=== PATIENT | female | born 1945 | race Caucasian/White ===

== ENCOUNTER 2021-02-03 10:07 | Day surgery (SDC) | payer MEDICARE, OTHER ==
[~2021-02-03] VITALS: Ht 172.7 cm; Wt 89.1 kg
[2021-02-03] VITALS (12 sets, daily range): BP systolic 101–185; BP diastolic 40–79
[2021-02-03] MEDS ORDERED: CHOL400T27 PO (10:42)
[2021-02-03] MEDS ORDERED: ASPI-1265 PO (10:42)
[2021-02-03] MEDS ORDERED: HYDR25TA4 PO (10:42)
[2021-02-03] MEDS ORDERED: LISI20TA28 PO (10:42)
[2021-02-03] MEDS ORDERED: PROP150T2 PO (10:42)
[2021-02-03] MEDS ORDERED: MULT-1085 PO (10:42)
[2021-02-03] MEDS ORDERED: normal saline 1,000 ML IV SCH (10:50)
[2021-02-03] MEDS ORDERED: diphenhydrAMINE 25mg capsule PO PRN (10:50)
[2021-02-03 11:18] LABS: BASOPHILS # (AUTO) 0.1 X10'3 (0-0.2); BASOPHILS % (AUTO) 0.7 % (0-1); EOSINOPHILS # (AUTO) 0.2 X10'3 (0-0.9); EOSINOPHILS % (AUTO) 2.6 % (0-6); HEMATOCRIT 45.7 % (35.0-45.0); HEMOGLOBIN 15.6 g/dl (12.0-16.0); LYMPHOCYTES # (AUTO) 2.6 X10'3 (1.1-4.8); LYMPHOCYTES % (AUTO) 31.1 % (21-51); MEAN CORPUSCULAR HEMOGLOBIN 30.6 PG (27.0-31.0); MEAN CORPUSCULAR HGB CONC 34.1 g/dL (33.0-36.5); MEAN CORPUSCULAR VOLUME 89.6 FL (78-98); MEAN PLATELET VOLUME 8.6 FL (7.4-10.4); MONOCYTES # (AUTO) 0.8 X10'3 (0-0.9); MONOCYTES % (AUTO) 9.2 % (2-12); NEUTROPHILS # (AUTO) 4.7 X10'3 (1.8-7.7); NEUTROPHILS % (AUTO) 56.4 % (42-75); PLATELET COUNT 310 X10'3 (140-440); RED CELL DISTRIBUTION WIDTH 13.4 % (11.5-14.5); WHITE BLOOD COUNT 8.4 X10'3 (4.5-11.0)
[2021-02-03 11:26] LABS: ALBUMIN 4.4 G/DL (3.4-5.0); ANION GAP 8 (8-16); BLOOD UREA NITROGEN 20 MG/DL (7-18); BUN/CREATININE RATIO 20.2 (6.6-38.0); CALCIUM 9.7 MG/DL (8.5-10.1); CHLORIDE 102 MMOL/L (99-107); CREATININE 0.99 MG/DL (0.40-0.90); POTASSIUM 3.9 MMOL/L (3.5-5.1); SODIUM 139 MMOL/L (135-145); TOTAL CARBON DIOXIDE 29.3 MMOL/L (24-32); eGFR 55 ML/MIN
[2021-02-03 11:27] LABS: GLUCOSE 96 MG/DL (70-104)
[2021-02-03] MEDS ORDERED: midazolam 1 mg/ML 2ml injection ONE (12:21)
[2021-02-03] MEDS ORDERED: fentaNYL/PF 50MCG/1 ML 2ML syringe ONE (12:21)
[2021-02-03] MEDS ORDERED: iohexol 350 MG/ML 50ML vial IV ONE (12:22)
[2021-02-03] MEDS ORDERED: heparin 1,000unit/ml 10ml vial 10 ML ONE (12:22)
[2021-02-03] MEDS ORDERED: iohexol 350MG/ML 100ml bottle IV ONE (12:22)
[2021-02-03] MEDS ORDERED: LIDOcaine 1% (10mg/ml)w/preservative injection 20ml MDV ONE (12:22)
[2021-02-03] MEDS ORDERED: proCHLORperazine 10 MG/2 ml inj IV PRN (13:40)
[2021-02-03] MEDS ORDERED: normal saline 1000ml 1,000 ML IV SCH (13:40)
[2021-02-03] MEDS ORDERED: HYDROcodone/acetaminophen 10/325mg tab PO PRN (13:40)
[2021-02-03] MEDS ORDERED: HYDROcodone/acetaminophen 5mg/325mg tablet PO PRN (13:40)
[2021-02-03] MEDS ORDERED: ondansetron/PF 4mg/2ml inj IV PRN (13:40)
== END 2021-02-03 16:20 | disposition home or self-care (01) ==
LOC: SSTAY O 10:07
PROVIDERS: ATTEND Internal Medicine Cardiovascular Disease
DX: R94.39 Abnormal result of other cardiovascular function study (principal); I48.0 Paroxysmal atrial fibrillation; I47.1 Supraventricular tachycardia; I10 Essential (primary) hypertension; G47.30 Sleep apnea, unspecified; C50.911 Malignant neoplasm of unspecified site of right female breast; Z79.01 Long term (current) use of anticoagulants; Z79.899 Other long term (current) drug therapy; Z79.82 Long term (current) use of aspirin; Z98.890 Other specified postprocedural states; Z87.891 Personal history of nicotine dependence; Z88.8 Allergy status to other drugs, medicaments and biological substances
CPT/HCPCS: 36415; 80048; 83735; 85025; 85610; 93005; 93458; 99152; C1760; C1769; C1894; J1644; J2001; J2250; J3010; J7030; Q0163; Q9967; A4620; A6258

== ENCOUNTER 2023-12-18 16:08 | Emergency (ER) | payer MEDICARE, OTHER ==
[~2023-12-18] VITALS: Ht 172.7 cm; Wt 90.8 kg
[~2023-12-18 16:08] MED LIST: ASPI-1265 PO; CHOL400T58 PO; HYDR25TA4 PO; LISI20TA28 PO; MULT-1085 PO; PROP150T2 PO
[2023-12-18 16:10] VITALS: BP 169/66; PULSE 78; RESP 16; TEMP 99.4; O2SAT 96
[2023-12-18] MEDS: LIDOcaine 1% 30ml preserv. free vial SQ STA (16:35)
[2023-12-18] MEDS: TETanus/Pertussis (Acell)/Diphther VAC/PF (Tdap-Adult) 0.5ml syringe IMVAC ONE (16:35)
[2023-12-18] MEDS ORDERED: AMOX-117 PO (17:38)
== END 2023-12-18 18:05 | disposition home or self-care (01) ==
LOC: ER 16:08
DX: S61.212A Laceration without foreign body of right middle finger without damage to nail, initial encounter (principal); Z79.82 Long term (current) use of aspirin; Z79.899 Other long term (current) drug therapy; W54.0XXA Bitten by dog, initial encounter; Y93.89 Activity, other specified; Y92.89 Other specified places as the place of occurrence of the external cause; Y99.8 Other external cause status
CPT/HCPCS: 12002; 90471; 90715; 99283; A6223; J7030; A6449

== ENCOUNTER 2024-12-20 11:12 | Inpatient (IN) | payer MEDICARE, OTHER ==
[~2024-12-20] VITALS: Ht 170.2 cm; Wt 94.2 kg
--- NOTE | 2024-12-20 11:50 | ELECTROCARDIOGRAPH REPORT ---
[facility] Test Date: 2024-12-20 Test Time: 11:47:39 Pat Name: VINH COLON Department: [facility] Patient ID: [id number] Room: [place] [address] Gender: F Photovoltaic Installer: : 1945 Requested By: PABLITO MORENO Order Number: [id number] Reading MD: Dr. Azam Lopez Measurements Intervals [place] Rate: 43 P: 260 [place]: 195 QRS: -21 QRSD: 115 T: 141 QT: 465 QTc: 394 Interpretive Statements Sinus or ectopic atrial bradycardia Nonspecific intraventricular conduction delay Probable anterolateral infarct, age indeterm Abnormal T, consider ischemia, lateral leads Electronically Signed On 12-27-2024 21:44:[address] Azam Lopez Please click the below link to view image of tracing.
[2024-12-20 11:57] LABS: BASOPHILS % (AUTO) 0.5 % (0-1); EOSINOPHILS # (AUTO) 0.1 X10'3 (0-0.9); EOSINOPHILS % (AUTO) 1.8 % (0-6); HEMATOCRIT 45.3 % (35.0-45.0); HEMOGLOBIN 15.3 g/dl (12.0-16.0); LYMPHOCYTES # (AUTO) 1.6 X10'3 (1.1-4.8); LYMPHOCYTES % (AUTO) 24.8 % (21-51); MEAN CORPUSCULAR HEMOGLOBIN 29.8 PG (27.0-31.0); MEAN CORPUSCULAR HGB CONC 33.9 g/dL (33.0-36.5); MEAN PLATELET VOLUME 8.7 FL (7.4-10.4); MONOCYTES # (AUTO) 0.7 X10'3 (0-0.9); MONOCYTES % (AUTO) 10.2 % (2-12); NEUTROPHILS # (AUTO) 4.2 X10'3 (1.8-7.7); NEUTROPHILS % (AUTO) 62.7 % (42-75); PLATELET COUNT 259 X10'3 (140-440); RED BLOOD COUNT 5.14 X10'6 (4.20-5.60); WHITE BLOOD COUNT 6.6 X10'3 (4.5-11.0)
[2024-12-20 12:12] LABS: ALANINE AMINOTRANSFERASE 31 U/L (12-78); ALBUMIN 3.8 G/DL (3.4-5.0); ALBUMIN/GLOBULIN RATIO 1.1 (1.1-1.5); ALKALINE PHOSPHATASE 93 IU/L (46-116); ANION GAP 7 (8-16); ASPARTATE AMINO TRANSFERASE 22 U/L (10-37); BILIRUBIN,TOTAL 0.7 MG/DL (0.1-1.0); BLOOD UREA NITROGEN 18 MG/DL (7-18); BUN/CREATININE RATIO 17.1 (10.0-20.0); CHLORIDE 105 MMOL/L (99-107); CREATININE 1.05 MG/DL (0.40-0.90); GLUCOSE 109 MG/DL (70-104); POTASSIUM 3.7 MMOL/L (3.5-5.1); SODIUM 141 MMOL/L (135-145); TOTAL CARBON DIOXIDE 29.3 MMOL/L (24-32); TOTAL PROTEIN 7.2 G/DL (6.4-8.2); eCRCL 42 ML/MIN; eGFR 50 ML/MIN
[2024-12-20 12:22] LABS: PRO BRAIN NATRIURETIC PEPTIDE 193 PG/ML (0-450)
--- NOTE | 2024-12-20 12:27 | RADIOLOGY REPORT ---
EXAM: DI CHEST,SINGLE VIEW Indication: CP Technique: Single frontal view of the chest was obtained Comparison: None FINDINGS: Lines and Tubes: None Lungs: No focal consolidation. Pleura: No effusion. No pneumothorax. Cardiomediastinal contours: Unremarkable Bones: No acute osseous abnormality. IMPRESSION: No acute cardiopulmonary disease.
[2024-12-20] MEDS: normal saline 1000ml 1,000 ML IV ONE (12:51)
[2024-12-20 14:19] LABS: UA COLLECTION TYPE VOIDED
[2024-12-20 14:20] LABS: BILIRUBIN,URINE NEGATIVE (Neg); CLARITY,URINE CLOUDY (Clear); COLOR,URINE YELLOW (Yellow); GLUCOSE, URINE NEGATIVE (Neg); KETONES,URINE 15 mg/dl (Neg); LEUKOCYTE ESTERASE ,URINE NEGATIVE (Neg); NITRITES, URINE POSITIVE (Neg); OCCULT BLOOD,URINE NEGATIVE (Neg); PROTEIN,URINE NEGATIVE (Neg); UROBILINOGEN,URINE 0.2 E.U/dL (0.2-1.0)
[2024-12-20 14:27] LABS: BACTERIA,URINE 4+ /HPF (Neg); RBC,URINE 0-2 /HPF (0-2); SQUAMOUS EPITHELIAL CELL,UR FEW /LPF (FEW)
[2024-12-20] MEDS ORDERED: ondansetron 4mg rapidly disintigrating tab PO PRN (15:00)
[2024-12-20] MEDS ORDERED: magnesium sulf-water 2g/50mL 50 ML IV PRN (15:00)
[2024-12-20] MEDS ORDERED: potassium Cl 40MEQ/1/2NS 520ml 520 ML IV PRN (15:00)
[2024-12-20] MEDS ORDERED: magnesium hydroxide 30ml (MOM) UD suspension PO PRN (15:00)
[2024-12-20] MEDS ORDERED: potassium Cl 20 mEq SR tablet PO PRN ×2 (15:00)
[2024-12-20] MEDS ORDERED: magnesium sulf-water 4G/100mL 100 ML IV PRN (15:00)
[2024-12-20] MEDS ORDERED: acetaminophen 325mg tablet PO PRN ×2 (15:00)
[2024-12-20] MEDS ORDERED: mag hydrox/Alum hydrox/simeth 30ml oral suspension PO PRN (15:00)
[2024-12-20] MEDS ORDERED: ondansetron/PF 4mg/2ml inj IV PRN (15:00)
[2024-12-20] MEDS: CefTRIAXone/D5W-Rocephin 1gm 50 ML IV ONE (15:21)
[2024-12-20] MEDS: normal saline 1000ml 1,000 ML IV SCH (15:21)
[2024-12-20] MEDS: PERFLUTREN PROTEIN-A MICROSPHR (Optison) 0.22 MG/ML 3ML VIAL IV ONE (15:53)
--- NOTE | 2024-12-20 16:48 | HISTORY AND PHYSICAL ---
History & Physical Providers to CC ~ History of Present Illness Reason for Admit\Complaint: symptomatic bradycardia, near-syncope History of Present Illness Christina Evans is a 79-year-old female with a past medical history of HTN and right breast cancer s/p lumpectomy who presented to the ED with chief complaint of intermittent near-syncope, generalized weakness, dizziness x 2 days. Patient denies prior MA/CAD, CVA, cardiac arrhythmia, DVT/PE, or GIB. Patient denies loss of consciousness, chest pain, palpitations, shortness of breath, abdominal pain, n/v/d. Patient states her material handler 2nd shift is Dr. Regan but states has not follow-up in two years. Initial diagnostic findings were notable for urinalysis positive for urinary tract infection and EKG indicating sinus bradycardia without BBB, no AVB. Tele in ED shows heart rate of 40-50s. Case consulted with on-call material handler [address]nd [address] Jha. Patient is to be admitted for further workups and treatment. Allergies: Coded Allergies: No Known Allergies (Unverified , 12/20/24) Home Medications Home Medications Active Reported Vitamin D3 (Cholecalciferol (Vitamin D3)) 10 Mcg Tablet 1 Tab PO DAILY Multi Vitamin Daily (Multivitamin) 1 Each Tablet 1 Tab PO DAILY Aspirin 81 Mg Tab.chew 1 Tab PO DAILY Hydrochlorothiazide 25 Mg Tablet 1 Tab PO DAILY Propafenone HCl 150 Mg Tablet 1 Tab PO TID Lisinopril 20 Mg Tablet 1 Tab PO DAILY Past Medical History Past Medical History Hypertension Right breast cancer s/p lumpectomy Past Surgical History Surgical History Comment s/p lumpectomy, right Loop recorder Past Social History Social History Comment Alcohol: one class of wine daily Tobacco: Former smoker, quit 54 years ago, 2-pack year hx Illicit drug use: Denies Living situation: Lives at home with a partner ROS ROS Other than positives in HPI, all 14 review of systems are negative Exam Vitals: Vital Signs Date Time Temp Pulse Resp B/P (MAP) Pulse Ox O2 Delivery O2 Flow Rate FiO2 12/20/24 15:00 65 17 143/60 (87) 94 0 12/20/24 12:54 Room Air* N/A 12/20/24 11:39 97.3 General: A&Ox 3, NAD HEENT: Normocephalic, PERRLA Neck: Supple, trachea midline, no JVD Chest: Clear to auscultation bilaterally Cardiovascular: Bradycardic, regular Abdomen: Soft and nontender Extremities: No cyanosis/clubbing/or edema Central Nervous System: CN II-XII intact, no focal deficits Musculoskeletal: No paraspinal muscle tenderness, no muscle spasm Skin: Warm and intact Diagnostic Data Last Recorded Lab Results: 12/20/24 1151 12/20/24 1151 Additional Plan # Symptomatic bradycardia # Near-syncope -negative troponin series, lytes wnl -follow TTE, TSH/T4, carotid US; place on transcutenous pacer -consulted on-call material handler 2nd shift Dr. Jha # UTI # NATO vs CKD - to rule out -UA positive for UTI, procal negative, wbc wnl -start ceftriaxone, IVF; follow urine culture # HTN -prn hydralazine DVT/VTE Prophylaxis: heparin Code Status: Full Code I spent a total of 35 minutes discussing Advanced Care Planning measures with the patient. Advance care planning: Discussed with patient the importance of advance care planning in case of emergent situation. We discussed various resuscitative measures/ ACP with the patient at the time of admission. Patient voiced understanding and patient has decided on a full code status. Date of Service: December 20, 2024 Billing Provider: OSEAS FELIX Common Visit Codes: 59075-BTYKXTI INP/OBS CARE (HIGH) Secondary Visit Codes: 32099-BYCVCPIT CARE PLAN 30 MINUTES OSEAS FELIX December 20, 2024 16:48
[2024-12-20] MEDS ORDERED: hydrALAZINE 20mg/ml inj. IV STA (16:54)
--- NOTE | 2024-12-20 17:07 | CARDIOLOGY REPORT ---
APPROVED REPORT EXAM: Comprehensive 2D, Doppler, and color-flow Echocardiogram. Patient Location: ER RM 3 Blood Pressure: 137/48 mmHg Heart Rate: 41 bpm Rhythm: Bradycardia Indications Arrhythmia RENEWABLE ENERGY CONSULTANT: Ban Regan MD Previous ECHO Unavailable 2D Dimensions IVSd 1.0 (0.7-1.1cm) LVDd 4.2 cm PWd 1.0 (0.7-1.1cm) IVSs 1.2 (0.8-1.2cm) LVDs 2.8 (2.5-4.0cm) PWs 1.5 (0.8-1.2cm) LVOT Diameter 2.19 (1.8-2.4cm) LVEF(%) 63.7 (>50%) IVC 13.22 mmFS (%) 34.3 % SV 49.9 ml CO 1.9 L/min M-Mode Dimensions Left Atrium(MM) 4.65 (2.5-4.0cm) Aortic Root 3.34 (2.2-3.7cm) Aortic Cusp Exc 1.77 (1.5-2.0cm) MV EPSS 0.8 (<0.5cm) Aortic Valve AoV Peak Alexander. 158.6 cm/s AoV VTI 34.1 cm AO Peak GR. 10.1 mmHg AO Mean GR. 5 mmHg LVOT VTI 22.83 cm LVOT Peak Alexander. 107.5 cm/s ELIZABETH(VTI)/BSA 2.52 cm2/m2 ELIZABETH (VTI) 2.52 cm2 TDI Lateral E' P. V8.43 cm/s Tricuspid Valve TR P. Velocity 270 cm/s RAP ESTIMATE 10 mmHg TR Peak Gr. 29 mmHg RVSP 39 mmHg LEFT VENTRICLE Normal LV size and wall thickness. Overall systolic function is normal. LVEF is 60-65%. RIGHT VENTRICLE Right ventricle is mildly dilated with adequate function. ATRIA Left atrium is moderately dilated. AORTIC VALVE Trileaflet AV appears mildly sclerotic without stenosis. Trivial insufficiency. MITRAL VALVE Mild mitral annular calcification without stenosis. Trace regurgitation. TRICUSPID VALVE The tricuspid valve is normal in structure with mildly regurgitation. PULMONIC VALVE The pulmonary valve is normal in structure with trace regurgitation. GREAT VESSELS The aortic root is normal in size. The IVC is normal in size and collapses >50% with inspiration. PERICARDIUM Normal pericardium. No effusion. Other Information Study Quality: Adequate Conclusion Normal LV size and wall thickness. Overall systolic function is normal. LVEF is 60-65%. Right ventricle is mildly dilated with adequate function. Left atrium is moderately dilated. Trileaflet AV appears mildly sclerotic without stenosis. Trivial insufficiency. Mild mitral annular calcification without stenosis. Trace regurgitation. The tricuspid valve is normal in structure with mildly regurgitation. The pulmonary valve is normal in structure with trace regurgitation. Normal pericardium. No effusion.
[2024-12-20 17:21] LABS: FREE T4 (FREE THYROXINE) 1.04 NG/DL (0.73-1.40)
[2024-12-20 17:30] VITALS: BP 172/63; PULSE 43; RESP 15; TEMP 97.5; O2SAT 98
[2024-12-20 18:00] VITALS: BP 139/50; PULSE 72; RESP 18; TEMP 97.9; O2SAT 97
[2024-12-20] MEDS: hydrALAZINE 20mg/ml inj. IV STA (18:02)
[2024-12-20] MEDS: docusate sod 100mg capsule PO SCH (19:21)
[2024-12-20] MEDS: K and/or MAG REPLACEMENT MC SCH (19:21)
[2024-12-20] MEDS: heparin, porcine 5000 units/ml vial SQ SCH (19:23)
[2024-12-20] MEDS: CHLORHEXIDINE GLUCONATE 4% 15 ML topical sol TP ONE (19:45)
[2024-12-20 22:00] VITALS: BP 133/45; PULSE 69; RESP 18; TEMP 97.3; O2SAT 97
[2024-12-21] VITALS (14 sets, daily range): BP systolic 121–166; BP diastolic 49–64; PULSE 62–80; RESP 14–25; TEMP 97.1–98.7; O2SAT 91–98
[2024-12-21] MEDS ORDERED: ceFAZolin/D5W- 1GM premix 50 ML IV SCH
--- NOTE | 2024-12-21 02:01 | CONSULTATION ---
DATE OF CONSULTATION: 12/20/2024 DICTATING PHYSICIAN: KARLA Jha MD CARDIOLOGY CONSULTATION REQUESTING PHYSICIAN: CLAUDIA Morris REASON FOR EVALUATION: An 79-year-old with recurrent syncopal episodes and symptomatic bradycardia. HISTORY OF PRESENT ILLNESS: The patient is an 79-year-old postmenopausal female with a history of hypertension, cardiac arrhythmias, on propafenone, has been on prior loop recorder/LINQ implantation in 2019 presenting with recurrent episodes of dizziness and near syncopal episodes. The patient's cardiac history dates back to 2019 when she was referred by her primary doctor to registered nurse first assistant, Dr. Regan for palpitation and a loop recorder was inserted. The patient has been on propafenone 150 mg p.o. t.i.d. since then. The patient thinks that it is for PAT and the records are not available at this time. The patient says she also has dizziness, near syncopal episode then, which has not happened until recently. The patient had a coronary angiography by Dr. Metz on 02/03/2021 and was found to have ejection fraction of 70%, LVEDP of 7 mmHg with no significant gradient across the aortic valve. No significant coronary artery disease was seen. The patient says she has been having these dizzy spells for the last few weeks and she says she had about 3 episodes of extreme dizziness, near syncopal episodes, worst one was about 4 days ago. She thinks the first episode was on 12/07 and second one was on 12/13, the third one was about 4 days ago. She feels like dizziness, head candelaria, and one time her found her on the floor, the other time, 3 days ago, also the patient did drop to the floor, did not hurt herself, thinks that she did not pass out completely. Otherwise, the patient exercises 20 minutes a day, 3 days a week. Her last visit with Dr. Regan was 1 year ago, telephone visit. Apparently, her loop recorder battery has depleted for probably 2+ years. I did speak with the [employer], who said that the battery is at end-of-life and because of these episodes, the patient came to the Emergency Room, heart rate was in the 40s and she was hospitalized. PAST MEDICAL HISTORY: * Hypertension. * ?supraventricular tachycardia, on propafenone. * History of smoking. * Obstructive sleep apnea, on CPAP. * Right breast cancer, status post lumpectomy back in 2022, had radiation therapy. MEDICATIONS: At home include vitamin D3, multivitamin, aspirin 81 mg p.o. daily, HCTZ 25 mg p.o. daily, propafenone 150 mg p.o. t.i.d., lisinopril 20 mg p.o. daily, amlodipine 5 mg p.o. daily. PAST SURGICAL HISTORY: Lumpectomy, right breast. SOCIAL HISTORY: Tobacco: The patient started smoking at 25, says she is still smoking until age 69, now she smokes small amounts periodically, and alcohol, she uses 2 glasses of wine every day. She is , lives with her in [place]. 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 Her is Nelson, telephone number [phone]. REVIEW OF SYSTEMS: HEENT: Wears reading glasses, mild hearing impairment. RESPIRATORY: History of smoking. Mild exertional shortness of breath. PSYCHIATRIC: Mild anxiety, depression. SKIN: None. ENDOCRINE: None. PHYSICAL EXAMINATION: VITAL SIGNS: Heart rate of 40, blood pressure 116/47. NECK: No JVD. Carotids equally well felt. CARDIAC: Regular rate and rhythm. S1 and S2 normal. No S3 or S4. LUNGS: Clear to auscultation bilaterally. ABDOMEN: Soft. Bowel sounds present. EXTREMITIES: 1+ edema. CENTRAL NERVOUS SYSTEM: No lateralizing signs. LABORATORY DATA: WBC 6.6, hemoglobin 15.3, hematocrit 45.3, platelet count 259. Sodium 141, potassium 3.7, chloride 105, bicarbonate 29, BUN 18, creatinine 1.05, proBNP 193, troponins were 13 and 14. DIAGNOSTIC DATA: Echocardiogram, ejection fraction 60-65% with trace TR and trace IA. Chest x-ray showed no acute cardiopulmonary process. IMPRESSION AND PLAN: * An 79-year-old postmenopausal female presented with multiple episodes of near syncope, symptomatic bradycardia, heart rate in the 40s and EKG shows bradycardia, heart rate of 40, nonspecific IVCD. The patient has a prior history of atrial tachycardia. In view of her tachybrady episode, which have become symptomatic, recommend permanent pacemaker implantation. Risks, benefits and alternative options were discussed. Informed consent obtained. We will schedule in a.m. 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 * Hypertension, on lisinopril, hydrochlorothiazide and amlodipine. * Obstructive sleep apnea, on CPAP. * Other comorbidities include history of right breast cancer, status post lumpectomy, mild anxiety and history of smoking, ?COPD. * Nonobstructive CAD by cardiac catheterization. KARLA Jha MD TID: [id number] RECEIPT: [id number] JOSHUA/NICHELLE/JOSEFINA MTDD
[2024-12-21 06:23] LABS: BASOPHILS # (AUTO) 0.1 X10'3 (0-0.2); EOSINOPHILS # (AUTO) 0.2 X10'3 (0-0.9); EOSINOPHILS % (AUTO) 3.2 % (0-6); HEMATOCRIT 39.9 % (35.0-45.0); HEMOGLOBIN 13.7 g/dl (12.0-16.0); LYMPHOCYTES # (AUTO) 1.9 X10'3 (1.1-4.8); LYMPHOCYTES % (AUTO) 33.8 % (21-51); MEAN CORPUSCULAR HEMOGLOBIN 30.2 PG (27.0-31.0); MEAN CORPUSCULAR HGB CONC 34.4 g/dL (33.0-36.5); MEAN CORPUSCULAR VOLUME 87.7 FL (78-98); MONOCYTES # (AUTO) 0.7 X10'3 (0-0.9); MONOCYTES % (AUTO) 12.6 % (2-12); NEUTROPHILS # (AUTO) 2.8 X10'3 (1.8-7.7); NEUTROPHILS % (AUTO) 49.4 % (42-75); PLATELET COUNT 207 X10'3 (140-440); RED BLOOD COUNT 4.55 X10'6 (4.20-5.60); RED CELL DISTRIBUTION WIDTH 14.1 % (11.5-14.5); WHITE BLOOD COUNT 5.6 X10'3 (4.5-11.0)
[2024-12-21 06:27] LABS: ALANINE AMINOTRANSFERASE 26 U/L (12-78); ALBUMIN 3.2 G/DL (3.4-5.0); ALBUMIN/GLOBULIN RATIO 1.1 (1.1-1.5); ALKALINE PHOSPHATASE 75 IU/L (46-116); ANION GAP 6 (8-16); ASPARTATE AMINO TRANSFERASE 23 U/L (10-37); BILIRUBIN,TOTAL 0.6 MG/DL (0.1-1.0); BLOOD UREA NITROGEN 13 MG/DL (7-18); BUN/CREATININE RATIO 18.6 (10.0-20.0); CALCIUM 8.6 MG/DL (8.5-10.1); CHLORIDE 107 MMOL/L (99-107); GLUCOSE 90 MG/DL (70-104); MAGNESIUM 1.9 MG/DL (1.5-2.4); POTASSIUM 3.5 MMOL/L (3.5-5.1); SODIUM 141 MMOL/L (135-145); TOTAL CARBON DIOXIDE 27.6 MMOL/L (24-32); TOTAL PROTEIN 6.1 G/DL (6.4-8.2); eCRCL 62 ML/MIN; eGFR 81 ML/MIN
--- NOTE | 2024-12-21 06:39 | VASCULAR REPORT ---
Carotid Duplex Date: 12/20/2024 05:30 PM Clinical History: Syncope Comparison: None Technique: Duplex Doppler evaluation of the extracranial carotid and vertebral arteries including col or Doppler and spectral/pulsed waveform analysis was performed. Findings: RIGHT SIDE: The peak systolic velocities are 97 cm/s in the distal CCA and 100 cm/s in the proximal ICA.The ICA/C CA ratio is 1.03. The external carotid artery is patent with peak systolic velocity of 139 cm/s proximally. The subclavian artery is patent with peak systolic velocity of 211 cm/s proximally. There is appropriate antegrade flow in the right vertebral artery. LEFT SIDE: The peak systolic velocities are 103 cm/s in the distal CCA and 112cm/s in the proximal ICA. The ICA /CCA ratio is 1.09. The external carotid artery is patent with peak systolic velocity of 136 cm/s proximally. The subclavian artery is patent with peak systolic velocity of 226 cm/s proximally. There is appropriate antegrade flow in the left vertebral artery. IMPRESSION: No hemodynamically significant stenosis noted in the right carotid system. No hemodynamically significant stenosis noted in the left carotid system. Less than 50% stenosis of the arteries bilaterally. Reference: Radiology 2003; 229:340-346
[2024-12-21] MEDS ORDERED: LIDOcaine 1% W/epiNEPHrine 1:100,000 20ml vial ONE ×2 (07:38→09:39)
[2024-12-21] MEDS ORDERED: ceFAZolin 1000mg inj ONE (07:38)
[2024-12-21] MEDS ORDERED: fentaNYL/PF 50MCG/1 ML 2ML syringe ONE ×2 (07:38→09:21)
[2024-12-21] MEDS ORDERED: midazolam 1 mg/ML 2ml injection ONE ×2 (07:38→09:21)
[2024-12-21] MEDS ORDERED: LIDOcaine 1% 30ml preserv. free vial ONE (08:30)
[2024-12-21] MEDS ORDERED: diphenhydrAMINE 50 mg/ml inj ONE (08:30)
--- NOTE | 2024-12-21 09:59 | PROGRESS NOTE ---
Daily Progress Note Providers to CC ~ Antibiotic Timeout Antibiotic Ordered?: Yes Subjective No acute events overnight. Patient examined at bedside. No new complaints, not in acute distress. Patient denies chest pain, sob, palpitations, abdominal pain, n/v/d. Vss, labs notable for resolving acute kidney injury on IVF. Tele sinus bradycardia as low as 39, scheduled for pacemaker placement today. TTE shows LVEF 60-65% and RVSP 39mmHg without significant valvular heart disease. Objective Vital Signs Date Time Temp Pulse Resp B/P (MAP) Pulse Ox O2 Delivery O2 Flow Rate FiO2 12/21/24 02:00 98.7 67 16 128/55 (79) 97 Room Air 12/20/24 20:00 0.0 N/A Result Diagram: 12/21/24 0551 12/21/24 0551 Physical Exam General: Generalized weakness, A&Ox 3, NAD HEENT: Normocephalic, PERRLA Neck: Supple, trachea midline, no JVD Chest: Clear to auscultation bilaterally Cardiovascular: Bradycardic GI: Soft and nontender Extremities: No cyanosis/clubbing/or edema ROOM SERVICE MANAGER: CN II-XII intact, no focal deficits Musculoskeletal: No paraspinal muscle tenderness, no muscle spasm Skin: Warm and intact Problem\Assessment\Plan # Symptomatic bradycardia # Near-syncope -negative troponin series, lytes wnl -follow TTE, TSH/T4, carotid US; place on transcutenous pacer -consulted on-call health services administrator Dr. Jha -12/21: tele sinus as low as 39; pacemaker today # UTI # Prerenal NATO 2/2 dehydration/vasomotor nephropathy- POA -UA positive for UTI, procal negative, wbc wnl -start ceftriaxone, IVF; follow urine culture -12/21: urine cx gram negative sabra, continue ceftriaxone # HTN -prn hydralazine DVT/VTE Prophylaxis: heparin Code Status: Full Code Date of Service: December 21, 2024 Billing Provider: OSEAS FELIX Common Visit Codes: [id number] INP/OBS CARE(HIGH) OSEAS FELIX December 21, 2024 09:59
[2024-12-21] MEDS: vancomycin/NS 1 GM ADD-VANTAGE 250 ML X 1 DOSE IV ONE (13:14)
[2024-12-21] MEDS: CefTRIAXone 2gm/D5W 50ml BAG 50 ML IV SCH (13:14)
--- NOTE | 2024-12-21 13:20 | RADIOLOGY REPORT ---
CHEST RADIOGRAPH Indication: NEW PACEMAKER Technique: Single frontal view of the chest was obtained Comparison: DI CHEST,SINGLE VIEW on DOS: 12/20/24 FINDINGS: Lines and Tubes: Left-sided pacemaker with leads in right atrium and right ventricle. Lungs: No focal consolidation. Pleura: No effusion. No pneumothorax. Cardiomediastinal contours: Unremarkable Bones: No acute osseous abnormality. IMPRESSION: 1. No acute cardiopulmonary disease.
[2024-12-22] VITALS (12 sets, daily range): BP systolic 105–198; BP diastolic 38–84; PULSE 64–95; RESP 16–23; TEMP 97.4–98.1; O2SAT 92–97
[2024-12-22 06:55] LABS: BASOPHILS # (AUTO) 0.1 X10'3 (0-0.2); BASOPHILS % (AUTO) 0.7 % (0-1); EOSINOPHILS # (AUTO) 0.2 X10'3 (0-0.9); EOSINOPHILS % (AUTO) 2.6 % (0-6); HEMATOCRIT 44.2 % (35.0-45.0); LYMPHOCYTES # (AUTO) 2.2 X10'3 (1.1-4.8); LYMPHOCYTES % (AUTO) 27.6 % (21-51); MEAN CORPUSCULAR HEMOGLOBIN 29.9 PG (27.0-31.0); MEAN PLATELET VOLUME 9.2 FL (7.4-10.4); MONOCYTES # (AUTO) 0.9 X10'3 (0-0.9); MONOCYTES % (AUTO) 12.1 % (2-12); NEUTROPHILS # (AUTO) 4.5 X10'3 (1.8-7.7); PLATELET COUNT 202 X10'3 (140-440); RED BLOOD COUNT 5.02 X10'6 (4.20-5.60); RED CELL DISTRIBUTION WIDTH 14.2 % (11.5-14.5); WHITE BLOOD COUNT 7.8 X10'3 (4.5-11.0)
[2024-12-22 07:19] LABS: ALANINE AMINOTRANSFERASE 27 U/L (12-78); ALBUMIN 3.4 G/DL (3.4-5.0); ALKALINE PHOSPHATASE 85 IU/L (46-116); ANION GAP 8 (8-16); ASPARTATE AMINO TRANSFERASE 28 U/L (10-37); BILIRUBIN,TOTAL 0.7 MG/DL (0.1-1.0); BLOOD UREA NITROGEN 11 MG/DL (7-18); BUN/CREATININE RATIO 16.2 (10.0-20.0); CALCIUM 8.7 MG/DL (8.5-10.1); CHLORIDE 106 MMOL/L (99-107); CREATININE 0.68 MG/DL (0.40-0.90); GLUCOSE 94 MG/DL (70-104); MAGNESIUM 1.9 MG/DL (1.5-2.4); POTASSIUM 3.8 MMOL/L (3.5-5.1); SODIUM 141 MMOL/L (135-145); TOTAL CARBON DIOXIDE 26.6 MMOL/L (24-32); TOTAL PROTEIN 6.7 G/DL (6.4-8.2); eCRCL 64 ML/MIN; eGFR 83 ML/MIN
--- NOTE | 2024-12-22 08:55 | PROGRESS NOTE ---
Progress Note Cardiology Providers to CC ~ Subjective Subjective Patient seen and examined this morning. Overall she is feeling well. Pacemaker site looks good. Objective Result Diagram: 12/22/2461112/22/24611 Objective General: Normal body habitus, no acute distress, HEENT: Sclerae clear, PERRL, gums without lesions or bleeding, oropharynx clear without erythema or exudate. Neck: Supple without enlargement of the thyroid, or lymphadenopathy, Chest: Normal size and shape, no tenderness, nonlabored breathing, Breath sounds clear to auscultation. Heart: Regular in rate and rhythm, S1 and S2 normal, no S3-S4 or murmurs. Abdomen: Soft, nontender, no organomegaly, bowel sounds present. Extremities: No edema cyanosis or clubbing. Pacemaker site looks good. Problem\Assessment\Plan Additional Plan 1. * An 79-year-old postmenopausal female presented with multiple episodes of near syncope, symptomatic bradycardia, heart rate in the 40s and EKG shows bradycardia, heart rate of 40, nonspecific IVCD. The patient has a prior history of atrial tachycardia. In view of her tachybrady episode, which have become symptomatic, recommend permanent pacemaker Patient underwent successful dual-chamber pacemaker implantation on 12/21/2024. Patient educated about ppm. Recommend Keflex for one week. Pacemaker staple removal with Primary lapping machine tender Dr. Ginny pastor. 2. 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 3. * Hypertension, on lisinopril, hydrochlorothiazide and amlodipine. 4. * Obstructive sleep apnea, on CPAP. 5. * Other comorbidities include history of right breast cancer, status post lumpectomy, mild anxiety and history of smoking, ?COPD. 6. * Nonobstructive CAD by cardiac catheterization. RODOLFO RAY MD December 22, 2024 08:55
--- NOTE | 2024-12-22 09:44 | ELECTROCARDIOGRAPH REPORT ---
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 KARLA Jha Measurements Intervals [place] Rate: 69 P: 71 [place]: 214 QRS: 31 QRSD: 102 T: 0 QT: 407 QTc: 436 Interpretive Statements Sinus rhythm Borderline prolonged OR interval Nonspecific repol abnormality, lateral leads Electronically Signed On 12-23-2024 15:06:[address] KARLA Jha Please click the below link to view image of tracing.
[2024-12-22] MEDS: hydrALAZINE 20mg/ml inj. IV PRN ×2 (11:32→13:18)
--- NOTE | 2024-12-22 11:37 | CARDIOLOGY REPORT ---
DATE OF SERVICE: 12/21/2024 DICTATING PHYSICIAN: KARLA Jha MD ELECTRICAL CARDIOVERSION PREPROCEDURE DIAGNOSES: Sick sinus syndrome with severe symptomatic bradycardia, presyncope. POSTPROCEDURE DIAGNOSES: Sick sinus syndrome with severe symptomatic bradycardia, presyncope. PROCEDURES DONE: * Fluoroscopy. * AV sequential pacemaker implantation. * Conscious sedation 80 minutes. COMPLICATIONS: None. ESTIMATED BLOOD LOSS: Less than 5 mL. DESCRIPTION OF PROCEDURE: The left infraclavicular area was prepped and draped in the usual fashion. Using blunt dissection and electrocautery, . Two separate accesses obtained in the left subclavian vein. Then, two micropuncture wires were placed in the left subclavian vein. Subsequently, exchanged with 2 J wires. One horizontal incision placed over the left infraclavicular area. Using blunt dissection and electrocautery, subcutaneous prepectoral pocket was fashioned. No other pocket was formed. External ends of the J-wires were retrieved into the pacemaker pocket. Two 7-Divehi sheaths were advanced over them. Through one of them, RV lead advanced to the RV apex, screwed into the RV apex. Appropriate pacing and sensing thresholds obtained. Sheath was removed by peel-away technique and lead anchored to the subcutaneous tissue with Ethibond. Through the second 7-Divehi sheath, right atrial lead was advanced to the right atrium. J-wire was formed, screwed into the right atrial appendage. Post procedure, it was possibly irrigated. Pacemaker was suspended in the pacemaker pocket. Pocket closed with continuous 0 Vicryl followed by interrupted 0 Vicryl, third layer of interrupted 2-0 Vicryl applied. Skin approximated with daphne. Pressure dressing applied. The patient tolerated the procedure well with no complications. Device used Medtronic MRI-compatible W3DR01, [place] pacemaker. MRI pacemaker, model #W3DR01, serial number [id number], [employer]onic, 12/21/2024, left pectoral location. RIGHT ATRIAL LEAD: Model #4076, 52 cm long, serial #[id number], Medtronic right atrial appendage, P-wave amplitude 2 millivolts, 532 ohms of impedance. Pacing threshold of 0.75 volts at 0.4 milliseconds. RV LEAD: Model #5076, 58 cm long, serial #[id number] 12/21/2024, RV apex, patient with R-wave amplitude of 14.8 millivolt, ohms of impedance, P-wave pacing threshold of 0.50 volt at 0.4 milliseconds. IMPRESSION: An 79-year-old female with sick sinus syndrome with symptomatic bradycardia, underwent successful AV sequential pacemaker implanted with no complications. RECOMMENDATIONS: Continue diet, weight loss, and exercise program. KARLA Jha MD TID: [id number] RECEIPT: [id number] JOSHUA/CELIA/JOSEFINA [facility]
[2024-12-22] MEDS: hydrALAZINE 20mg/ml inj. IV STA (14:09)
[2024-12-22] MEDS: isosorbide mononitrate 30mg tab.SR.24H PO ONE (14:16)
[2024-12-22] MEDS: HYDROchlorothiazide 25mg tablet PO ONE (15:00)
--- NOTE | 2024-12-22 16:18 | PROGRESS NOTE ---
Daily Progress Note Providers to CC ~ Antibiotic Timeout Antibiotic Ordered?: Yes If Yes, Indications: UTI Subjective No acute events overnight. Patient examined at bedside. No new complaints, not in acute distress. Patient is fatigued, denies chest pain, sob, palpitations, abdominal pain, n/v/d. Hypertensive with systolic highest at 190. Treated with IV hydralazine. Tele paced in 60s. Labs unremarkable. Urine culture shows E.coli sensitive to Rocephin she has been on. Objective Vital Signs Date Time Temp Pulse Resp B/P (MAP) Pulse Ox O2 Delivery O2 Flow Rate FiO2 12/22/24 14:09 91 12/22/24 11:30 16 190/63 (105) Room Air 12/22/24 08:00 92 N/A 12/22/24 02:00 97.4 12/21/24 20:00 0.0 Result Diagram: 12/22/2461112/22/24 06 Physical Exam General: Generalized weakness, fatigued, A&Ox 3, NAD HEENT: Normocephalic, PERRLA Neck: Supple, trachea midline, no JVD Chest: Clear to auscultation bilaterally Cardiovascular: RRR GI: Soft and nontender Extremities: No cyanosis/clubbing/or edema HOSPICE TEAM LEAD: CN II-XII intact, no focal deficits Musculoskeletal: No paraspinal muscle tenderness, no muscle spasm Skin: Warm and intact Problem\Assessment\Plan # Symptomatic bradycardia # Near-syncope -negative troponin series, lytes wnl -follow TTE, TSH/T4, carotid US; place on transcutenous pacer -consulted on-call jeeper operator Dr. Jha -12/21: tele sinus as low as 39; pacemaker today -12/22: Tele paced in 60s. # UTI # Prerenal NATO 2/2 dehydration/vasomotor nephropathy- POA -UA positive for UTI, procal negative, wbc wnl -start ceftriaxone, IVF; follow urine culture -12/21: urine cx gram negative sabra, continue ceftriaxone -12/22: urine culture shows E.coli, sensitive to ceftriaxone # HTN # Hypertensive urgency -prn hydralazine -12/22: systolic highest at 190. Treated with IV hydralazine. DVT/VTE Prophylaxis: heparin Code Status: Full Code Date of Service: December 22, 2024 Billing Provider: OSEAS FELIX Common Visit Codes: [id number] INP/OBS CARE(HIGH) OSEAS FELIX December 22, 2024 16:18
[2024-12-23 02:00] VITALS: BP 134/47; PULSE 96; RESP 16; TEMP 97.7; O2SAT 95
[2024-12-23 06:00] VITALS: BP 148/49; PULSE 82; RESP 20; TEMP 97.5; O2SAT 96
[2024-12-23] MEDS: isosorbide mononitrate 30mg tab.SR.24H PO SCH (07:38)
[2024-12-23] MEDS: HYDROchlorothiazide 25mg tablet PO SCH (07:39)
[2024-12-23] MEDS: lisinopril 20mg tablet PO SCH (07:40)
[2024-12-23 07:55] LABS: BASOPHILS % (AUTO) 0.4 % (0-1); EOSINOPHILS # (AUTO) 0.1 X10'3 (0-0.9); EOSINOPHILS % (AUTO) 0.9 % (0-6); HEMATOCRIT 38.6 % (35.0-45.0); HEMOGLOBIN 13.4 g/dl (12.0-16.0); LYMPHOCYTES # (AUTO) 1.4 X10'3 (1.1-4.8); LYMPHOCYTES % (AUTO) 16.8 % (21-51); MEAN CORPUSCULAR HEMOGLOBIN 30.3 PG (27.0-31.0); MEAN CORPUSCULAR HGB CONC 34.6 g/dL (33.0-36.5); MEAN CORPUSCULAR VOLUME 87.5 FL (78-98); MONOCYTES # (AUTO) 1.2 X10'3 (0-0.9); MONOCYTES % (AUTO) 14.5 % (2-12); NEUTROPHILS # (AUTO) 5.4 X10'3 (1.8-7.7); NEUTROPHILS % (AUTO) 67.4 % (42-75); PLATELET COUNT 174 X10'3 (140-440); RED BLOOD COUNT 4.41 X10'6 (4.20-5.60); RED CELL DISTRIBUTION WIDTH 14.1 % (11.5-14.5); WHITE BLOOD COUNT 8.1 X10'3 (4.5-11.0)
[2024-12-23 08:00] VITALS: RESP 20; O2SAT 96
[2024-12-23 08:02] LABS: ALANINE AMINOTRANSFERASE 21 U/L (12-78); ALBUMIN 3.1 G/DL (3.4-5.0); ALKALINE PHOSPHATASE 75 IU/L (46-116); ANION GAP 10 (8-16); ASPARTATE AMINO TRANSFERASE 23 U/L (10-37); BILIRUBIN,TOTAL 0.6 MG/DL (0.1-1.0); BLOOD UREA NITROGEN 18 MG/DL (7-18); BUN/CREATININE RATIO 18.2 (10.0-20.0); CHLORIDE 106 MMOL/L (99-107); CREATININE 0.99 MG/DL (0.40-0.90); GLUCOSE 113 MG/DL (70-104); POTASSIUM 3.3 MMOL/L (3.5-5.1); SODIUM 141 MMOL/L (135-145); TOTAL CARBON DIOXIDE 25.5 MMOL/L (24-32); TOTAL PROTEIN 6.1 G/DL (6.4-8.2); eCRCL 44 ML/MIN; eGFR 54 ML/MIN
[2024-12-23] MEDS ORDERED: LISI10TA27 PO (10:45)
[2024-12-23] MEDS ORDERED: METO-395 PO (10:45)
[2024-12-23] MEDS ORDERED: CEPH250T PO (10:45)
[2024-12-23] MEDS: metoprolol succinate 25mg (24-HOUR) SR. Tablet PO ONE (10:50)
[2024-12-23 11:00] VITALS: BP 115/50; PULSE 126; RESP 20; TEMP 97.5; O2SAT 100
--- NOTE | 2024-12-23 12:52 | DISCHARGE SUMMARY ---
Discharge Summary Providers to CC ~ Discharge Summary Admission Diagnosis: symptomatic bradycardia, UTI Hospital Course DATE OF ADMISSION: 12/20/24 DATE OF DISCHARGE: 12/23/24 Discharge Diagnosis\Comment: Symptomatic bradycardia Near-syncope 2/2 above UTI Prerenal NATO 2/2 dehydration/vasomotor nephropathy- POA HTN Hypertensive urgency Operations\Procedures: Pacemaker placement (12/21/24) Consultants: Washer Machine KARLA Fitzgerald Complications: None Condition on DC: Stable New Medications: Cephalexin*Monohydrate* (Keflex*) 250 Mg Capsule 1 CAP PO Q6H for 7 Days, #28 CAP Lisinopril (Lisinopril) 10 Mg Tablet 10 MG PO DAILY for 90 Days, #90 TAB Metoprolol Succinate (Metoprolol Succinate) 25 Mg Tab.sr.24h 25 MG PO DAILY for 90 Days, #90 TAB.SR Continued Medications: Aspirin (Aspirin) 81 Mg Tab.chew 1 TAB PO DAILY, TAB Cholecalciferol (Vitamin D3) (Vitamin D3) 10 Mcg Tablet 1 TAB PO DAILY, TAB 0 Refills Hydrochlorothiazide (Hydrochlorothiazide) 25 Mg Tablet 1 TAB PO DAILY Multivitamin (Multi Vitamin Daily) 1 Each Tablet 1 TAB PO DAILY, TAB 0 Refills Propafenone HCl (Propafenone HCl) 150 Mg Tablet 1 TAB PO TID Discontinued Medications: Lisinopril (Lisinopril) 20 Mg Tablet 1 TAB PO DAILY Discharge Summary: History of Present Illness Christina Evans is a 79-year-old female with a past medical history of HTN and right breast cancer s/p lumpectomy who presented to the ED with chief complaints of intermittent near-syncope, generalized weakness, dizziness x 2 days. Patient denies prior RI/CAD, CVA, cardiac arrhythmia, DVT/PE, or GIB. Patient denies use of home AV blockades, loss of consciousness, chest pain, palpitations, shortness of breath, abdominal pain, n/v/d. Patient states her clinical trial specialist is Dr. Regan but states has not follow-up in two years. Hospital Course Diagnostic findings were notable for urinalysis positive for urinary tract infection and EKG indicating sinus bradycardia without BBB, no AVB. Telemetry indicated heart rate as low as 39-50s. Pertinent negative findings were normal TSH, T4, normal serum lytes, negative carotid ultrasound. TTE indicated normal overall systolic function with LVEF of 60-65% without significant valvular heart disease. Patient was started on empirical antibiotics and case consulted with on-call clinical trial specialist Dr. Jha and patient underwent pacemaker placement on 12/21/24 without complication. Since pacemaker placement, telemetry remained paced in 60s within episode of sinus tachycardia at 122 bpm. Patient was started on bbx. Patient developed hypertensive urgency which was treated with antihypertensives. Patient was not cleared for discharged by physical therapy service until 12/23/24. Patient did not experience further complications throughout the entire hospital stay. Patient was seen and examined on the day of discharge. All labs, diagnostic workups, discharge plan discussed with patient in details during visit before discharge. All questions and concerns answered to the best of my professional knowledge. Patient is to be discharged to home to self and to follow-up with PCP and her clinical trial specialist Dr. Regan within 2 weeks. Physical Exam General: A&Ox 3, NAD HEENT: Normocephalic, PERRLA Neck: Supple, trachea midline, no JVD Chest: Clear to auscultation bilaterally Cardiovascular: RRR GI: Soft and nontender Extremities: No cyanosis/clubbing/or edema REPAIR SERVICE CLERK: CN II-XII intact, no focal deficits Musculoskeletal: No paraspinal muscle tenderness, no muscle spasm Skin: Warm and intact *Problems/Diagnosis: (1) Symptomatic bradycardia Status: Acute Total Time Spent on D/C: > 30 Minutes Date of Service: December 23, 2024 Billing Provider: OSEAS FELIX Common Visit Codes: 90405-BOT/OBS DISCH DAY >30min OSEAS FELIX December 23, 2024 12:52
--- NOTE | 2024-12-23 13:06 | PROGRESS NOTE ---
Progress Note Cardiology Providers to CC ~ Subjective Subjective Patient seen and examined this afternoon. Patient ready to go home. No significant Kenny arrhythmias. Pacemaker site looks good. Objective Result Diagram: 12/23/2472812/23/24728 Objective General: Normal body habitus, no acute distress, HEENT: Sclerae clear, PERRL, gums without lesions or bleeding, oropharynx clear without erythema or exudate. Neck: Supple without enlargement of the thyroid, or lymphadenopathy, Chest: Normal size and shape, no tenderness, nonlabored breathing, Breath sounds clear to auscultation. Heart: Regular in rate and rhythm, S1 and S2 normal, no S3-S4 or murmurs. Abdomen: Soft, nontender, no organomegaly, bowel sounds present. Extremities: No edema cyanosis or clubbing. Problem\Assessment\Plan Additional Plan 1. * An 79-year-old postmenopausal female presented with multiple episodes of near syncope, symptomatic bradycardia, heart rate in the 40s and EKG shows bradycardia, heart rate of 40, nonspecific IVCD. Patient underwent ppm implantation on 12/21/2024. Pacemaker site looks good. Pacemaker staple removal with primary school psychologist assistant Dr. Hawley. 2. 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 Continue beta blockers. 3. * Hypertension, on lisinopril, hydrochlorothiazide and amlodipine. 4. * Obstructive sleep apnea, on CPAP. 5. * Other comorbidities include history of right breast cancer, status post lumpectomy, mild anxiety and history of smoking, ?COPD. 6. * Nonobstructive CAD by cardiac catheterization. RODOLFO RAY MD December 23, 2024 13:06
[2024-12-24] MEDS ORDERED: metoprolol succinate 25mg (24-HOUR) SR. Tablet PO SCH (08:00)
--- NOTE | 2024-12-24 16:49 | Physician Documentation ---
History of Present Illness ~ Chief Complaint: Dizziness Stated Complaint: NEAR SYNCOPE Time Seen by MD: 11:46 Primary Medical Doctor: DR. KVNG MCGREGOR Christina Evans is a 79-year-old female with a past medical history of HTN and right breast cancer s/p lumpectomy who presented to the ED with chief complaint of intermittent near-syncope, generalized weakness, dizziness x 2 days. Patient denies prior NE/CAD, CVA, cardiac arrhythmia, DVT/PE, or GIB. Patient denies loss of consciousness, chest pain, palpitations, shortness of breath, abdominal pain, n/v/d. Her adult caregiver is Dr. Regan. She also denies fever, flu symptoms, and urinary symptoms. Medication Reconciliation Allergies: Coded Allergies: No Known Allergies (Unverified , 12/20/24) Scheduled Aspirin (Aspirin), 1 TAB PO DAILY, (Reported) Cephalexin*Monohydrate* (Keflex*), 1 CAP PO Q6H Cholecalciferol (Vitamin D3) (Vitamin D3), 1 TAB PO DAILY, (Reported) Hydrochlorothiazide (Hydrochlorothiazide), 1 TAB PO DAILY, (Reported) Lisinopril (Lisinopril), 10 MG PO DAILY Metoprolol Succinate (Metoprolol Succinate), 25 MG PO DAILY Multivitamin (Multi Vitamin Daily), 1 TAB PO DAILY, (Reported) Propafenone HCl (Propafenone HCl), 1 TAB PO TID, (Reported) Discontinued Medications Lisinopril (Lisinopril), 1 TAB PO DAILY, (Reported) Past Medical History Smoking Status: Never smoker Review of Systems All Other Systems at this time: Reviewed and Negative Physical Exam Vital Signs: RN Vital Signs have been reviewed: Yes, Temperature: 97.5, Source: Temporal, Heart Rate: 126, Respiratory Rate: 20, BP: 115/50, Pulse Oximetry: 100, Weight: 94.250 Oxygen Flow Rate: 0.0 Physical Exam Gen: no distress HEENT: PERRL, EOMI Pulm: no distress, CTAB Cardiac: regular bradycardia, no murmurs Abdomen: s/nt/nd Skin: w/d/i Neuro: nonfocal, alert Psych: appropriate Progress Results/Orders Results/Orders Orders - DARYA GREENE MD [facility] Hospitalist (12/20/24 ) Completed Orders - DARYA GREENE MD Normal Saline 1000ml (Sodium Chloride 10 (12/20/24 12:45) Ua W/Microscopic, Cult If Ind (12/20/24 13:58) Cult Urine + [place] (12/20/24 14:27) Ceftriaxone/R0s-Gkczjssq 1gm (Rocephin 1 (12/20/24 14:50) Vital Signs 12/20/24 12/20/24 12/20/24 12/20/24 11:39 12:00 12:30 12:54 Temp 97.3 Pulse 40 41 58 Resp 18 18 12 B/P (MAP) 155/86 163/60 (94) 137/49 (78) Pulse Ox 97 98 95 98 O2 Delivery Room Air* O2 Flow Rate 0 0 0 FiO2 N/A 12/20/24 12/20/24 12/20/24 12/20/24 12:55 12:59 13:00 13:30 Pulse 55 37 40 Resp 17 17 15 15 B/P (MAP) 137/48 (77) 143/48 (79) 116/47 (70) Pulse Ox 97 98 98 O2 Flow Rate 0 0 0 12/20/24 12/20/24 14:30 15:00 Pulse 62 65 Resp 17 17 B/P (MAP) 117/40 (65) 143/60 (87) Pulse Ox 95 94 O2 Flow Rate 0 0 Laboratory Tests Test 12/20/24 11:51 12/20/24 13:46 12/20/24 13:58 White Blood Count 6.6 Red Blood Count 5.14 Hemoglobin 15.3 Hematocrit 45.3 H Mean Corpuscular Volume 88.0 Mean Corpuscular Hemoglobin 29.8 Mean Corpuscular Hemoglobin Concent 33.9 Red Cell Distribution Width 14.0 Platelet Count 259 Mean Platelet Volume 8.7 Neutrophils (%) (Auto) 62.7 Lymphocytes (%) (Auto) 24.8 Monocytes (%) (Auto) 10.2 Eosinophils (%) (Auto) 1.8 Basophils (%) (Auto) 0.5 Neutrophils # (Auto) 4.2 Lymphocytes # (Auto) 1.6 Monocytes # (Auto) 0.7 Eosinophils # (Auto) 0.1 Basophils # (Auto) 0.0 CBC Comment Sodium Level 141 Potassium Level 3.7 Chloride Level 105 Carbon Dioxide Level 29.3 Anion Gap 7 L Blood Urea Nitrogen 18 Creatinine 1.05 H Estimated GFR/1.73 m2 50 BUN/Creatinine Ratio 17.1 Glucose Level 109 H Calcium Level 9.0 Total Bilirubin 0.7 Aspartate Amino Transf (AST/SGOT) 22 Alanine Aminotransferase (ALT/SGPT) 31 Alkaline Phosphatase 93 Troponin I High Sensitivity 13 14 Pro-B-Type Natriuretic Peptide 193 Total Protein 7.2 Albumin 3.8 Globulin 3.4 Albumin/Globulin Ratio 1.1 Procalcitonin < 0.05 Thyroid Stimulating Hormone (TSH) 3.70 Free Thyroxine 1.04 Chemistry Comments Troponin I High Sens Percent Delta 7 Troponin I Hi Sens Absolute Change 1 Urine Specimen Description Voided Urine Color Yellow Urine Clarity Cloudy Urine pH 6.0 Urine Specific [place] 1.020 Urine Protein Negative Urine Glucose (UA) Negative Urine Ketones 15 H Urine Occult Blood Negative Urine Nitrite Positive H Urine Bilirubin Negative Urine Urobilinogen 0.2 Urine Leukocyte Esterase Negative Urine RBC 0-2 Urine WBC 5-10 H Urine Squamous Epithelial Cells Few Urine Bacteria 4+ Urine Culture Indicated Indicated Volume Urine Centrifuged 10 ml Urine Comment Microbiology Date/Time Source Procedure Growth Status 12/20/24 14:27 Urine Clean Catch Midstream Urine Culture - Final Escherichia Coli Complete EKG/XRAY/CT/US/VASC/MRI EKG : Indication: dizzy EKG: sinus gena, no ST T wave changes EKG Blocks: none Chest X-Ray : Interpreted By: self Views: 1 VIEW Indication: dizzy Lungs: normal Mediastinum: normal Ribs/Bones: normal Abdomen: normal Impression: no acute disease Medical Decision Making Findings 79 year old female with dizziness. Her workup demonstrated a UTI and bradyc ardia. Care transferred to hospitalist service. Departure Disposition: ADMITTED INPATIENT Admitted to Inpatient Unit: to hospitalist Admission Level of Care: Med/Surg Impression: Primary Impression: Symptomatic bradycardia Additional Impressions: Acute metabolic encephalopathy UTI (urinary tract infection) Condition: Stable Discharge Instructions: Pacemaker Implantation, Adult, Care After Referrals: NO PRIMARY CARE PROVIDER (PCP) Prescriptions Cephalexin*Monohydrate* (Keflex*) 250 Mg Capsule 1 CAP PO Q6H for 7 Days, #28 CAP Prov: SOEAS FELIXP 12/23/24 Lisinopril (LISINOPRIL) 10 Mg Tablet 10 MG PO DAILY for 90 Days, #90 TAB Prov: OSEAS FELIX 12/23/24 Metoprolol Succinate (Metoprolol Succinate) 25 Mg Tab.sr.24h 25 MG PO DAILY for 90 Days, #90 TAB.SR Prov: OSEAS FELIX [employer] 12/23/24 Education Educated: Patient Educated regarding: diagnosis, treatment, prognosis, need for follow up Signature Scribe Signature: . Attestation: . DARYA GREENE MD December 24, 2024 16:49
== END 2024-12-23 14:12 | disposition home or self-care (01) | DRG 242 ==
LOC: ER 11:12 → ED HOLD 15:01 → PCU 3S 17:01
PROVIDERS: ADMIT Nurse Practitioner Family; ATTEND Nurse Practitioner Family
PROC: 0JH606Z Insertion of Pacemaker, Dual Chamber into Chest Subcutaneous Tissue and Fascia, Open Approach (ICD-10-PCS; principal; 2024-12-21)
PROC: 02H63JZ Insertion of Pacemaker Lead into Right Atrium, Percutaneous Approach (ICD-10-PCS; 2024-12-21)
PROC: 02HK3JZ Insertion of Pacemaker Lead into Right Ventricle, Percutaneous Approach (ICD-10-PCS; 2024-12-21)
PROC: 0JPT02Z Removal of Monitoring Device from Trunk Subcutaneous Tissue and Fascia, Open Approach (ICD-10-PCS; 2024-12-21)
DX: I49.5 Sick sinus syndrome (principal); G93.41 Metabolic encephalopathy; N17.0 Acute kidney failure with tubular necrosis; N39.0 Urinary tract infection, site not specified; J44.9 Chronic obstructive pulmonary disease, unspecified; I25.10 Atherosclerotic heart disease of native coronary artery without angina pectoris; I10 Essential (primary) hypertension; I16.0 Hypertensive urgency; F17.200 Nicotine dependence, unspecified, uncomplicated; G47.33 Obstructive sleep apnea (adult) (pediatric); F41.9 Anxiety disorder, unspecified; Z85.3 Personal history of malignant neoplasm of breast; Z79.82 Long term (current) use of aspirin; Z79.899 Other long term (current) drug therapy
CPT/HCPCS: 33208; 33286; 36415; 71045; 80053; 81001; 83735; 83880; 84145; 84439; 84443; 84484; 85025; 87077; 87081; 87088; 87186; 93005; 93306; 93880; 97116; 97161; 97530; 99152; 99153; A4565; A6402; A6449; C1785; C1898; G0378; J0360; J0690; J0696; J1200; J1644; J2003; J2250; J3010; J3370; J3490; J7030